=== PATIENT | male | born 1950 | race Caucasian/White ===

== ENCOUNTER → 2017-09-24 | Outpatient (CLI) | payer BC | END | disposition home or self-care (01) | LOC: PCVCCLINIC 10:04 | DX: I25.10 Atherosclerotic heart disease of native coronary artery without angina pectoris (principal); I25.5 Ischemic cardiomyopathy; I10 Essential (primary) hypertension; I65.23 Occlusion and stenosis of bilateral carotid arteries; E78.2 Mixed hyperlipidemia; R94.31 Abnormal electrocardiogram [ECG] [EKG]; R00.1 Bradycardia, unspecified; Z79.82 Long term (current) use of aspirin; Z79.899 Other long term (current) drug therapy | CPT/HCPCS: 80061; 93005; G0463 ==

== ENCOUNTER → 2018-03-23 | Outpatient (CLI) | payer BC | END | disposition home or self-care (01) | LOC: PCVCCLINIC 10:40 | DX: I25.10 Atherosclerotic heart disease of native coronary artery without angina pectoris (principal); I25.5 Ischemic cardiomyopathy; I10 Essential (primary) hypertension; I65.23 Occlusion and stenosis of bilateral carotid arteries; E78.5 Hyperlipidemia, unspecified; Z79.82 Long term (current) use of aspirin; Z79.899 Other long term (current) drug therapy | CPT/HCPCS: 80061; 93005; G0463 ==

== ENCOUNTER → 2018-10-15 | Outpatient (CLI) | payer BC ==
[2015-03-15 08:46] VITALS: BP 153/76
[~2018-10-15] MED LIST: ASPI-630 PO; ATOR40TA59 PO; BYSTOLIC5 MG PO; FAMO-63 PO; FELO10TA PO; GLUC1TAB69 PO; ISOS30TA19 PO; LISI1TAB5 PO; MULT1TAB97 PO; OMEG500C PO; PRAS10TA9 PO
--- NOTE | 2018-10-15 12:04 | PCVCIMAG ---
APPROVED REPORT Indications Stenosis Risk Factors Hypertension: Hyperlipidemia Doppler Spectral Velocity Analysis PSV / EDVPSV / EDV ECA (R) 102 / 6 cm/sECA (L) 102 / 3 cm/s dICA (R) 29 / 9 cm/sdICA (L) 38 / 14 cm/s Joey (R) 62 / 19 cm/smICA (L) 52 / 15 cm/s pICA (R) 72 / 22 cm/spICA (L) 56 / 16 cm/s Bulb (R) 57 / 16 cm/sBulb (L) 55 / 11 cm/s dCCA (R) 61 / 9 cm/sdCCA (L) 64 / 12 cm/s mCCA (R) 64 / 10 cm/smCCA (L) 58 / 12 cm/s Vert (R) 38 / 9 cm/sVert (L) 33 / 10 cm/s ICA/CCA 0.88 ICA/CCA 1.12 Basic Measurements Blood Pressure: Pulses: Right Left RightLeft Brachial(Sitting) 142/07euIn894/88mmHgTemporal Real Time B-Mode Imaging Vert. (R)AntegradeVert. (L)Antegrade Findings The right carotid bulb has moderate calcified plaque. The right proximal internal carotid artery shows <40% stenosis. The right common carotid artery shows no significant stenosis. The right external carotid artery shows no significant stenosis. The left carotid bulb has minimal plaque. The left proximal internal carotid artery shows no significant stenosis. The left common carotid artery shows no significant stenosis. The left external carotid artery shows no significant stenosis. Conclusion 1. Right internal carotid artey stenosis (<40%) 2. Left internal carotid minimal plaquing without significant stenosis 3. Antegrade vertebral flow
--- NOTE | 2018-10-15 12:13 | PCVCIMAG ---
APPROVED REPORT Study performed: 10/15/2018 11:20:37 EXAM: Comprehensive 2D, Doppler, and color-flow Echocardiogram Patient Location: Echo lab Room #: 3Status: routine BSA: 2.12 HR: 45 bpmBP: 138/88 mmHg Rhythm: Bradycardia Other Information Study Quality: Adequate Risk Factors: Cardiac Risk Factors: Hyperlipidemia, HTN Indications CAD Cardiomyopathy 2D Dimensions IVSd: 11.88 (7-11mm)LVOT Diam: 20.00 (18-24mm) LVDd: 54.38 mm PWd: 11.05 (7-11mm)Ascending Ao: 30.64 (22-36mm) LVDs: 38.75 (25-40mm) Left Atrium: 39.69 (27-40mm) Aortic Root: 29.12 mm LV Single Plane 4CH: 44.83 % LV Single Plane 2CH: 43.69 % Biplane EF: 44.7 % Volumes Left Atrial Volume (Systole) Single Plane 4CH: 62.24 mLSingle Plane 2CH: 43.99 mL LA ESV Index: 28.00 mL/m2 Aortic Valve AoV Peak Chance.: 1.44 m/s AO Peak Gr.: 8.33 mmHgLVOT Max P.22 mmHg LVOT Max V: 1.03 m/s INGRID Vmax: 2.17 cm2 Mitral Valve E/A Ratio: 1.3 MV Decel. Time: 327.90 ms MV E Max Chance.: 0.83 m/s MV A Chance.: 0.64 m/s MV PHT: 95.09 ms IVRT: 64.59 ms TDI E/Lateral E': 11.86E/Medial E': 11.86 Medial E' Chance.: 0.07 m/s Lateral E' Chance.: 0.07 m/s Pulmonary Valve PV Peak Chance.: 0.87 m/sPV Peak Gr.: 3.06 mmHg Pulmonary Vein P Vein S: 0.36 m/sP Vein A: 0.21 m/s P Vein D: 0.52 m/sP Vein A Dur.: 138.4 msec P Vein S/D Ratio: 0.69 Tricuspid Valve RAP Estimate: 7.00 mmHg Left Ventricle Left ventricle is mildly dilated. Borderline concentric left ventricular hypertrophy. Left ventricular systolic function is mildly decreased. Mid to distal septal and anterior wall hypokinesis LVEF is 45%. Moderate diastolic dysfunction is present (pseudonormal filling). Right Ventricle The right ventricle is normal size. The right ventricular systolic function is normal. Atria The left atrium size is normal. The right atrium size is normal. Aortic Valve The Aortic valve is mildly sclerotic. No aortic regurgitation is present. There is no aortic valvular stenosis. Mitral Valve The mitral valve is normal in structure. Mild mitral regurgitation. No evidence of mitral valve stenosis. Tricuspid Valve The tricuspid valve is normal in structure. Trace tricuspid regurgitation. Unable to assess PA pressure. Pulmonic Valve The pulmonary valve is normal in structure. Trace pulmonic regurgitation. Great Vessels The aortic root is normal in size. IVC is normal in size and collapses >50% with inspiration. Pericardium There is no pericardial effusion. <Conclusion> Left ventricular systolic function is mildly decreased. Mid to distal septal and anterior wall hypokinesis LVEF is 45%. Moderate diastolic dysfunction The aortic valve is mildly sclerotic. No aortic regurgitation or stenosis. The mitral valve is normal in structure. Mild mitral regurgitation. Pulmonary artery pressure could not be reliably ascertained There is no pericardial effusion.
== END | disposition home or self-care (01) ==
LOC: PCVCIMAG 09:56
PROVIDERS: ATTEND Internal Medicine
DX: I65.23 Occlusion and stenosis of bilateral carotid arteries (principal); I34.0 Nonrheumatic mitral (valve) insufficiency; E78.5 Hyperlipidemia, unspecified; I25.10 Atherosclerotic heart disease of native coronary artery without angina pectoris; I42.9 Cardiomyopathy, unspecified
CPT/HCPCS: 93306; 93880

== ENCOUNTER → 2019-02-23 | Outpatient (CLI) | payer BC ==
[2015-03-15 08:46] VITALS: BP 153/76
--- NOTE | 2019-02-23 17:58 | KCIC ---
2 view study of the left hip Clinical indications: Left hip pain. Patient fell 30 feet. FINDINGS: No acute fracture or dislocation or lytic process is evident. No significant arthritic change is seen IMPRESSION: No acute osseous abnormality. Electronically signed by: Ruddy Aaron MD (02/23/2019 5:55 PM) [facility]
== END | disposition home or self-care (01) ==
LOC: KCIC 12:34
PROVIDERS: ATTEND Family Medicine
DX: M25.552 Pain in left hip (principal); W19.XXXA Unspecified fall, initial encounter; Y93.89 Activity, other specified; Y92.89 Other specified places as the place of occurrence of the external cause; Y99.8 Other external cause status
CPT/HCPCS: 73502

== ENCOUNTER → 2019-03-09 | Outpatient (CLI) | payer BC ==
[2015-03-15 08:46] VITALS: BP 153/76
--- NOTE | 2019-03-09 10:36 | KCIC ---
Examination: MRI of the left shoulder without contrast HISTORY: History of left shoulder pain, fall COMPARISON: None available TECHNIQUE: Multiplanar, multisequence MR imaging of the left shoulder were performed without contrast FINDINGS: The long head of the biceps tendon is not evident in the bicipital groove. There is increased signal identified in the superior fibers of the subscapularis tendon. There is full-thickness tear of the supraspinatus tendon with mild tendon retraction with extension of fluid into the subacromial subdeltoid bursa. There is increased signal identified in the anterior fibers of the infraspinatus tendon could be a partial-thickness tear of the infraspinatus tendon. The teres minor tendon appears intact There is mild superior translation of the humerus head in relation to the glenoid. Severe joint space loss identified in the glenohumeral joint likely degeneration. The acromion is type II. Moderate degenerative changes identified Clinical history joint. There is mild muscle bulk loss identified in the supraspinatus muscle. Examination is very limited due to significant motion artifact. The labrum demonstrates mild increased signal throughout likely degeneration. IMPRESSION: 1. Full-thickness tear of the supraspinatus tendon with mild tendon retraction. There is mild increased signal identified in the superior fibers of the subscapularis and anterior fibers of the infraspinatus tendons could be partial tears. 2. Very limited examination due to motion artifact. The long head of the biceps tendon is not clearly evident within the bicipital groove. 3. Severe degenerative changes glenohumeral joint. Moderate degenerative changes acromioclavicular joint. There is mild superior translation of the humerus head in relation to glenoid likely due to rotator cuff tear. Electronically signed by: Samy Rosales MD (03/09/2019 10:34 AM) [facility]-[id number]
== END | disposition home or self-care (01) ==
LOC: KCIC MRI 09:07
PROVIDERS: ATTEND Orthopaedic Surgery
DX: S46.012A Strain of muscle(s) and tendon(s) of the rotator cuff of left shoulder, initial encounter (principal); M19.012 Primary osteoarthritis, left shoulder; X58.XXXA Exposure to other specified factors, initial encounter; Y93.89 Activity, other specified; Y92.89 Other specified places as the place of occurrence of the external cause; Y99.8 Other external cause status
CPT/HCPCS: 73221

== ENCOUNTER → 2019-04-08 | Outpatient (CLI) | payer BC ==
[2015-03-15 08:46] VITALS: BP 153/76
--- NOTE | 2019-04-08 10:35 | RAD ---
SHOULDER 2+V LEFT 04/08/2019 12:00 AM INDICATION: Left shoulder pain COMPARISON: None available. TECHNIQUE: 3 views of the left shoulder are provided. FINDINGS: There is no acute fracture or dislocation. Bone mineralization is within normal limits. Minimal joint space narrowing involving the acromioclavicular joint with inferiorly projecting osteophyte. Mild glenohumeral joint space narrowing.. Regional soft tissues are within normal limits. There is no soft tissue gas or osseous erosion. IMPRESSION: No acute fracture or dislocation. 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 Electronically signed by: Gracia Aquino MD (04/08/2019 10:32 AM) [id number]
== END | disposition home or self-care (01) ==
LOC: RAD 07:29
PROVIDERS: ATTEND Orthopaedic Surgery Sports Medicine
DX: M19.012 Primary osteoarthritis, left shoulder (principal); M25.712 Osteophyte, left shoulder; M25.812 Other specified joint disorders, left shoulder
CPT/HCPCS: 73030

== ENCOUNTER → 2021-12-24 | Outpatient (CLI) | payer BC ==
[2015-03-15 08:46] VITALS: BP 153/76
[~2021-12-24] MED LIST changes: -FELO10TA PO; +FELO10TA4 PO; +LISI1TAB37 PO; -LISI1TAB5 PO
--- NOTE | 2021-12-24 12:39 | KCIC ---
EXAM: XR KNEE _3 VIEWS_LT 12/24/2021 8:34 AM CLINICAL INDICATION: Posterior left knee pain COMPARISON: None TECHNIQUE: AP, oblique, and lateral views of the left knee with standing FINDINGS: No acute fracture. Alignment is normal. Joint spaces are maintained. There are tiny medial and patellofemoral compartment osteophytes. No significant joint effusion. There are vascular calcif ications. IMPRESSION: No acute osseous abnormality. Minimal degenerative joint disease. Electronically signed by: Avril Vieyra MD (12/24/2021 12:37 PM) [id number]
== END ==
LOC: KCIC 08:30
PROVIDERS: ATTEND Family Medicine
DX: M17.12 Unilateral primary osteoarthritis, left knee (principal); M25.762 Osteophyte, left knee
CPT/HCPCS: 73562